=== PATIENT | male | born 1965 | race Caucasian/White ===

== ENCOUNTER 2021-05-24 15:11 | Emergency (ER) | payer OTHER ==
[~2021-05-24] VITALS: Ht 170.2 cm; Wt 74.8 kg
[2021-05-24 15:11] VITALS: BP_SYST 137
[2021-05-24 16:50] VITALS: BP_SYST 137
== END 2021-05-24 16:50 ==
LOC: SED 15:11
DX: Z02.89 Encounter for other administrative examinations (principal)
CPT/HCPCS: 99281